=== PATIENT | male | born 1940 | race Caucasian/White ===

== ENCOUNTER → 2024-04-14 15:41 | Outpatient (REF) | payer MEDICARE, OTHER, SELFPAY ==
[2024-04-14 17:10] LABS: NT-proBNP 271 pg/ml
[2024-04-14 17:11] LABS: ALT (SGPT) 29 U/L (0-50); AST (SGOT) 31 U/L (17-59); Albumin 4.6 g/dl (3.5-5.0); Alkaline Phosphatase 85 U/L (38-126); Blood Urea Nitrogen 15 mg/dl (9-20); Calcium 9.6 mg/dl (8.4-10.2); Carbon Dioxide 29 mmol/L (22-30); Chloride 93 mmol/L (98-107); Glucose 112 mg/dl (70-99); Potassium 4.8 mmol/L (3.5-5.1); Sodium 129 mmol/L (135-145); Total Bilirubin 0.7 mg/dl (0.2-1.3); Total Protein 7.2 g/dl (6.3-8.2); eGFR > 60.00
[2024-04-14 17:20] LABS: Urine Albumin Trace (Neg - Trace); Urine Bilirubin Negative (Negative); Urine Character Clear (Clear); Urine Color Yellow; Urine Glucose Negative (Negative); Urine Ketone Trace (Negative); Urine Leukocyte Trace (Negative); Urine Nitrite Negative (Negative); Urine Occult Blood Negative (Negative); Urine Specific Gravity 1.015 (<1.030); Urine Urobilinogen Negative (Neg - 1+)
[2024-04-14 17:32] LABS: TSH Reflex To Free T4 3.14 uIU/ml (0.47-4.68)
[2024-04-14 17:39] LABS: Urine Red Blood Cell 0-2 /HPF (0-2)
[2024-04-14 17:43] LABS: Microalbumin, Random Urine 3.1 mg/dl (0.6-1.7); Microalbumin/creatinine Ratio 15.5 mg/g
== END ==
LOC: RAD 15:41
PROVIDERS: ATTENDING PHYSICIAN Specialist; FAMILY PHYSICIAN Family Medicine; REFERRING PHYSICIAN Physician Assistant Surgical
DX: R60.0 Localized edema (principal)
CPT/HCPCS: 36415; 80053; 80183; 81003; 81015; 82043; 82570; 83880; 84443; 93970

== ENCOUNTER → 2024-05-02 14:56 | Outpatient (REF) | payer MEDICARE, OTHER, SELFPAY ==
[2024-05-02 16:23] LABS: Blood Urea Nitrogen 19 mg/dl (9-20); Calcium 9.2 mg/dl (8.4-10.2); Carbon Dioxide 29 mmol/L (22-30); Chloride 89 mmol/L (98-107); Glucose 124 mg/dl (70-99); Potassium 4.4 mmol/L (3.5-5.1); Sodium 129 mmol/L (135-145); eGFR > 60.00
[2024-05-02 17:01] LABS: CEA 1.75 ng/ml
== END ==
LOC: REG 14:56
PROVIDERS: ATTENDING PHYSICIAN Specialist; FAMILY PHYSICIAN Family Medicine
DX: E26.9 Hyperaldosteronism, unspecified (principal); E83.52 Hypercalcemia; I10 Essential (primary) hypertension; E78.00 Pure hypercholesterolemia, unspecified; D50.9 Iron deficiency anemia, unspecified; E34.9 Endocrine disorder, unspecified; E21.0 Primary hyperparathyroidism; E87.1 Hypo-osmolality and hyponatremia; C18.0 Malignant neoplasm of cecum
CPT/HCPCS: 36415; 80048; 82378

== ENCOUNTER → 2024-05-08 14:28 | Outpatient (REF) | payer MEDICARE, OTHER, SELFPAY | LOC: RAD 14:28 | PROVIDERS: ATTENDING PHYSICIAN Specialist; FAMILY PHYSICIAN Family Medicine | DX: K56.609 Unspecified intestinal obstruction, unspecified as to partial versus complete obstruction (principal) | CPT/HCPCS: 74178; Q9967 ==

== ENCOUNTER → 2024-06-09 15:30 | Outpatient (REF) | payer MEDICARE, OTHER, SELFPAY | LOC: RCS 15:30 | PROVIDERS: ATTENDING PHYSICIAN Specialist; FAMILY PHYSICIAN Family Medicine | DX: R60.0 Localized edema (principal) | CPT/HCPCS: 93306 ==

== ENCOUNTER → 2024-07-14 13:15 | Outpatient (REF) | payer MEDICARE, OTHER, SELFPAY | LOC: RAD 13:15 | PROVIDERS: ATTENDING PHYSICIAN Registered Nurse; FAMILY PHYSICIAN Family Medicine | DX: M79.89 Other specified soft tissue disorders (principal); I73.9 Peripheral vascular disease, unspecified; I87.2 Venous insufficiency (chronic) (peripheral) | CPT/HCPCS: 93922; 93970 ==

== ENCOUNTER → 2025-04-03 07:11 | Outpatient (REF) | payer MEDICARE, OTHER, SELFPAY ==
[2025-04-03 08:09] LABS: % Basophils 0.5 % (0-2); % Eosinophils 3.3 % (0-6); % Immature Granulocytes 0.5 % (0-0.5); % Lymphocytes 17.1 % (20.5-51.1); % Monocytes 8.5 % (1.7-9.3); % Neutrophils 70.1 % (42.2-75.2); Absolute Eosinophils 0.2 10^3/uL (0-0.7); Absolute Lymphocytes 1.1 10^3/uL (1.2-3.4); Absolute Monocytes 0.5 10^3/uL (0.1-0.6); Absolute Neutrophils 4.5 10^3/uL (1.4-6.5); Hematocrit 45.8 % (39.0-52.0); Hemoglobin 15.8 g/dL (13.0-18.0); Mean Corp Hgb Conc. 34.5 g/dL (33.0-37.0); Mean Corpuscular Hgb 31.7 pg (27.0-31.0); Mean Corpuscular Volume 91.8 fL (80.0-94.0); Nucleated Red Blood Cells % 0 % (-); Platelet Count 166 10^3/uL (130-400); Red Blood Cell Count 4.99 10^6/uL (4.70-6.10); Red Cell Dist. Width 11.9 % (11.5-14.5); White Blood Cell Count 6.4 10^3/uL (4.8-10.8)
[2025-04-03 08:31] LABS: NT-proBNP 178 pg/ml
[2025-04-03 08:34] LABS: Protein/creatinine Ratio 0.1; Urine Protein 9 mg/dl
[2025-04-03 08:40] LABS: ALT (SGPT) 22 U/L (0-50); AST (SGOT) 24 U/L (17-59); Albumin 4.7 g/dl (3.5-5.0); Alkaline Phosphatase 77 U/L (38-126); Blood Urea Nitrogen 19 mg/dl (9-20); Calcium 9.2 mg/dl (8.4-10.2); Carbon Dioxide 31 mmol/L (22-30); Chloride 102 mmol/L (98-107); Glucose 179 mg/dl (70-99); HDL Cholesterol 30 mg/dl; Phosphorus 2.9 mg/dl (2.5-4.5); Potassium 3.6 mmol/L (3.5-5.1); Sodium 141 mmol/L (135-145); Total Bilirubin 0.6 mg/dl (0.2-1.3); Total Cholesterol 206 mg/dl (50-199); Total Protein 7.3 g/dl (6.3-8.2); eGFR > 60.00
[2025-04-03 08:42] LABS: Triglyceride > 400 mg/dl (10-149)
[2025-04-03 09:07] LABS: Glycohemoglobin (HgbA1c) 7.3 % (4.0-5.6)
[2025-04-03 09:07] LABS: LDL Cholesterol, Direct 75 mg/dl
[2025-04-03 11:33] LABS: TSH Reflex To Free T4 4.62 uIU/ml (0.47-4.68)
[2025-04-03 12:09] LABS: Vitamin B12 1000 pg/ml (239-931)
[2025-04-03 13:34] LABS: Syphilis/T. pallidum Ab Reflex Negative (Negative)
[2025-04-05 13:11] LABS: Lyme Antibody Screen, EIA Negative (Negative)
[2025-04-05 21:39] LABS: Babesia microti IgG < 1:16 (< 1:16); Babesia microti IgM <1:20 (<1:20)
== END ==
LOC: REG 07:11
PROVIDERS: ATTENDING PHYSICIAN Specialist; FAMILY PHYSICIAN Family Medicine
DX: E11.69 Type 2 diabetes mellitus with other specified complication (principal); Z76.89 Persons encountering health services in other specified circumstances; E66.09 Other obesity due to excess calories; Z68.34 Body mass index [BMI] 34.0-34.9, adult; E66.811 Obesity, class 1; E26.9 Hyperaldosteronism, unspecified; E55.9 Vitamin D deficiency, unspecified; I10 Essential (primary) hypertension; E21.3 Hyperparathyroidism, unspecified; Z79.899 Other long term (current) drug therapy; R26.89 Other abnormalities of gait and mobility; Z91.81 History of falling; R60.0 Localized edema; R73.09 Other abnormal glucose
CPT/HCPCS: 36415; 80053; 80061; 82570; 82607; 82746; 83036; 83721; 83880; 84100; 84156; 84443; 85025; 86618; 86666; 86753; 86780

== ENCOUNTER → 2025-07-23 15:07 | Outpatient (REF) | payer MEDICARE, OTHER, SELFPAY | LOC: RAD 15:07 | PROVIDERS: ATTENDING PHYSICIAN Family Medicine | DX: R05.1 Acute cough (principal); R53.83 Other fatigue | CPT/HCPCS: 71046 ==